=== PATIENT | male | born 1950 | race Caucasian/White ===

== ENCOUNTER → 2024-05-11 12:48 | Outpatient (REF) | payer MEDICARE, OTHER, SELFPAY | LOC: MRI 12:48 | PROVIDERS: ATTENDING PHYSICIAN Pain Medicine Interventional Pain Medicine; FAMILY PHYSICIAN Physician Assistant Medical | DX: M54.16 Radiculopathy, lumbar region (principal) | CPT/HCPCS: 72148 ==